=== PATIENT | male | born 1990 | race African-American/Black ===

== ENCOUNTER 2022-04-17 10:24 | Emergency (ER) | payer MEDICAID ==
[~2022-04-17] VITALS: Ht 188 cm; Wt 70.9 kg
[2022-04-17 10:34] VITALS: BP 114/73
== END 2022-04-17 11:53 | disposition home or self-care (01) ==
LOC: EMS 10:26
DX: Z11.3 Encounter for screening for infections with a predominantly sexual mode of transmission (principal)
CPT/HCPCS: 87491; 87591; 99283

== ENCOUNTER 2024-12-27 09:41 | Emergency (ER) | payer MEDICAID ==
[~2024-12-27] VITALS: Ht 188 cm; Wt 72.7 kg
[2024-12-27] MEDS: KETOROLAC TROMETHAMINE 30 MG/ML VIAL IM ONE (12:13)
[2024-12-27 12:24] LABS: BASOPHILS % (AUTO) 0.9 % (0.0-2.0); EOSINOPHILS % (AUTO) 1.7 % (1.0-6.0); HEMATOCRIT 46.5 % (41-53); HEMOGLOBIN 15.3 g/dL (13.5-17.5); LYMPHOCYTES # (AUTO) 1.2 K/uL (1.0-4.8); MEAN CORPUSCULAR HEMOGLOBIN 29.9 pg (26.0-34.0); MEAN CORPUSCULAR HGB CONC 32.8 G/dL (31.0-37.0); MEAN CORPUSCULAR VOLUME 91 fL (80-100); MONOCYTES # (AUTO) 0.6 K/uL (0.1-1.0); MONOCYTES % (AUTO) 9.3 % (2.0-9.0); NEUTROPHILS # (AUTO) 4.2 K/uL (1.8-7.7); NEUTROPHILS % (AUTO) 68.1 % (40.0-70.0); PLATELET COUNT (AUTO) 223 K/uL (150-450); RED BLOOD CELL COUNT(AUTO) 5.11 MIL/uL (4.50-5.90); RED CELL DISTRIBUTION WIDTH 14.2 % (11.5-14.5); WHITE BLOOD COUNT (AUTO) 6.2 K/uL (4.5-11.0)
[2024-12-27 12:26] LABS: ANION GAP 6 mmol/L (8-16); CALCIUM, TOTAL 9.1 mg/dL (8.8-10.5); CARBON DIOXIDE 29 mmol/L (22-29); CHLORIDE 103 mmol/L (98-107); CREATININE 0.69 mg/dL (0.60-1.30); GLOMERULAR FILTR. RATE CALC > 60 mL/min (>60); GLUCOSE,RANDOM 94 mg/dL (70-110); POTASSIUM 4.1 mmol/L (3.5-5.1); SODIUM SERUM 138 mmol/L (136-145); UREA NITROGEN, BLOOD 8 mg/dL (7-18)
[2024-12-27] MEDS ORDERED: SODIUM CHLORIDE 0.9% 100 ML ONE (12:49)
[2024-12-27] MEDS ORDERED: IOHEXOL 350 MG/ML 100 ML VIAL ONE (12:49)
[2024-12-27 13:46] LABS: APPEARANCE,URINE CLEAR (CLEAR); BILIRUBIN,URINE NEGATIVE (NEGATIVE); COLOR,URINE LIGHT YELLOW (YELLOW); GLUCOSE, URINE (UA) NEGATIVE (NEGATIVE); KETONES,URINE NEGATIVE (NEGATIVE); LEUKOCYTE ESTERASE ,URINE NEGATIVE (NEGATIVE); NITRATE,URINE NEGATIVE (NEGATIVE); OCCULT BLOOD,URINE NEGATIVE (NEGATIVE); PH,URINE 6.5 (5.0-8.0); PROTEIN,URINE NEGATIVE (NEGATIVE); SPECIFIC GRAVITIY, URINE 1.012 (1.003-1.030); UROBILINOGEN,URINE <=1.0 mg/dL (<=1.0)
[2024-12-27 14:23] VITALS: BP 118/77; PULSE 86; RESP 16; TEMP 98.5; O2SAT 100
[2024-12-27] MEDS ORDERED: IBUP-1492 PO (14:26)
[2024-12-27] MEDS ORDERED: CYCL-448 PO (14:26)
== END 2024-12-27 14:43 | disposition home or self-care (01) ==
LOC: EMS 09:41
DX: M54.50 Low back pain, unspecified (principal); M79.651 Pain in right thigh; R11.0 Nausea
CPT/HCPCS: 99285; 72131; 80048; 81003; 85025; 36415; 74177; 96372; J1885; Q9967; J7050

== ENCOUNTER 2025-08-07 21:50 | Emergency (ER) | payer MEDICAID ==
[~2025-08-07] VITALS: Ht 188 cm; Wt 75.0 kg
[~2025-08-07 21:50] MED LIST: CYCL-448 PO; IBUP-1492 PO
[2025-08-07 21:54] VITALS: BP 117/73; PULSE 63; RESP 17; TEMP 98.2; O2SAT 98
[2025-08-07 22:21] LABS: PLATELET COUNT (AUTO) 218 K/uL (150-450); RED BLOOD CELL COUNT(AUTO) 4.65 MIL/uL (4.50-5.90); RED CELL DISTRIBUTION WIDTH 13.6 % (11.5-14.5); WHITE BLOOD COUNT (AUTO) 7.0 K/uL (4.5-11.0)
[2025-08-07 22:28] LABS: CALCIUM, TOTAL 8.8 mg/dL (8.8-10.5); CREATININE 0.63 mg/dL (0.60-1.30); GLOMERULAR FILTR. RATE CALC > 60 mL/min (>60); GLUCOSE,RANDOM 101 mg/dL (70-110); SODIUM SERUM 140 mmol/L (136-145); UREA NITROGEN, BLOOD 11 mg/dL (7-18)
[2025-08-07 22:43] LABS: TROPONIN I-HIGH SENSITIVITY 4 ng/L (<76)
[2025-08-08] MEDS ORDERED: KETOROLAC TROMETHAMINE 30 MG/ML VIAL IM ONE (01:15)
== END 2025-08-08 01:20 | disposition left against medical advice (07) ==
LOC: EMS 22:20
DX: R07.89 Other chest pain (principal); F17.210 Nicotine dependence, cigarettes, uncomplicated; Z79.899 Other long term (current) drug therapy
CPT/HCPCS: 71045; 80048; 84484; 85025; 93005; 99285; 36415-L1; 36415-TC

== ENCOUNTER 2025-08-11 20:13 | Emergency (ER) | payer MEDICAID ==
[~2025-08-11] VITALS: Ht 188 cm; Wt 75.0 kg
[2025-08-11 20:33] VITALS: TEMP 98.405312
[2025-08-11 20:50] LABS: PLATELET COUNT (AUTO) 235 K/uL (150-450); RED BLOOD CELL COUNT(AUTO) 4.77 MIL/uL (4.50-5.90); RED CELL DISTRIBUTION WIDTH 14.1 % (11.5-14.5); WHITE BLOOD COUNT (AUTO) 6.4 K/uL (4.5-11.0)
[2025-08-11] MEDS: ONDANSETRON 4 MG TABLET PO ONE (20:50)
[2025-08-11] MEDS: ACETAMINOPHEN 500 MG TABLET PO ONE (20:50)
[2025-08-11 20:58] LABS: CALCIUM, TOTAL 9.1 mg/dL (8.8-10.5); CREATININE 0.68 mg/dL (0.60-1.30); GLOMERULAR FILTR. RATE CALC > 60 mL/min (>60); GLUCOSE,RANDOM 122 mg/dL (70-110); SODIUM SERUM 140 mmol/L (136-145); UREA NITROGEN, BLOOD 13 mg/dL (7-18)
[2025-08-11 21:08] LABS: TROPONIN I-HIGH SENSITIVITY 4 ng/L (<76)
[2025-08-11] MEDS: POTASSIUM CHLORIDE 20 MEQ ER TABLET PO ONE (21:38)
[2025-08-11] MEDS: MAG HYDROX/ALUMINUM HYD/SIMETH 30 ML SUSPENSION UDCUP PO ONE (21:38)
[2025-08-11] MEDS: FAMOTIDINE 20 MG TABLET PO ONE (21:38)
[2025-08-11 23:26] LABS: TROPONIN I-HIGH SENSITIVITY 4 ng/L (<76)
[2025-08-11 23:50] VITALS: BP 121/70; PULSE 72; RESP 16; O2SAT 100
== END 2025-08-12 00:29 | disposition home or self-care (01) ==
LOC: EMS 20:13
DX: R07.89 Other chest pain (principal); R11.0 Nausea; F17.210 Nicotine dependence, cigarettes, uncomplicated; Z79.899 Other long term (current) drug therapy
CPT/HCPCS: 99285; 71045; 80048; 84484; 85025; 36415; 93005; Q0162